=== PATIENT | female | born 1940 | race Caucasian/White ===

== ENCOUNTER → 2016-07-04 | Outpatient (CLI) | payer MEDICARE, OTHER | LOC: MW.CHENT 08:00 | PROVIDERS: ATTEND Otolaryngology | DX: H81.10 Benign paroxysmal vertigo, unspecified ear (principal); H90.5 Unspecified sensorineural hearing loss; H93.19 Tinnitus, unspecified ear | CPT/HCPCS: 99204 ==

== ENCOUNTER → 2016-07-09 | Outpatient (CLI) | payer MEDICARE, OTHER | LOC: MW.CHORTHO 08:00 | PROVIDERS: ATTEND Orthopaedic Surgery | DX: M17.11 Unilateral primary osteoarthritis, right knee (principal) | CPT/HCPCS: G0463 ==

== ENCOUNTER → 2016-08-01 | Outpatient (CLI) | payer MEDICARE, OTHER | LOC: MW.CHENT 08:00 | PROVIDERS: ATTEND Otolaryngology | DX: H81.10 Benign paroxysmal vertigo, unspecified ear (principal); H90.5 Unspecified sensorineural hearing loss | CPT/HCPCS: G0463 ==

== ENCOUNTER → 2016-08-28 | Outpatient (CLI) | payer MEDICARE, OTHER ==
[2016-08-28 14:06] LABS: CHLORIDE,CL 107 mmol/L (98-110); SODIUM,NA 141 mmol/L (136-146)
== END ==
LOC: MW.CHFP 09:58
PROVIDERS: ATTEND Nurse Practitioner Family
DX: E78.00 Pure hypercholesterolemia, unspecified (principal); K57.90 Diverticulosis of intestine, part unspecified, without perforation or abscess without bleeding; Z86.73 Personal history of transient ischemic attack (TIA), and cerebral infarction without residual deficits
CPT/HCPCS: 36415; 80053; 80061; 85025; G0463

== ENCOUNTER 2016-09-28 22:46 | Emergency (ER) | payer MEDICARE, OTHER ==
--- NOTE | 2016-09-28 22:55 | EDM.PDOC ---
ED HPI GENERAL MEDICAL PROBLEM - General Chief Complaint: Lower Extremity Injury/Pain Stated Complaint: FELL OF STEP STOOL Time Seen by Provider: 09/28/16 22:55 Source of Information: Reports: Patient - History of Present Illness INITIAL COMMENTS - FREE TEXT/NARRATIVE: HISTORY AND PHYSICAL: History of present illness: [] Patient presents with right lower extremity pain after a fall yesterday, she was on a step stool up one step and fell to the floor she has been ambulatory since but 6/ pain with ambulation, most of the pain involves the hip but she does have knee and ankle pain as well Has not taken ibuprofen and tramadol throughout the day Head injury or loss of consciousness no fever nausea vomiting chills sweats no chest pain shortness breath headache dizziness or palpitation no bowel or urine symptoms Review of systems: As per history of present illness and below otherwise all systems reviewed and negative. Past medical history: As per history of present illness and as reviewed below otherwise noncontributory. Surgical history: As per history of present illness and as reviewed below otherwise noncontributory. Social history: No reported history of drug or alcohol abuse. Family history: As per history of present illness and as reviewed below otherwise noncontributory. Physical exam: HEENT: Atraumatic, normocephalic, pupils reactive, negative for conjunctival pallor or scleral icterus, mucous membranes moist, throat clear, neck supple, nontender, trachea midline. Lungs: Clear to auscultation, breath sounds equal bilaterally, chest nontender. Heart: S1S2, regular, negative for clicks, rubs, or JVD. Abdomen: Soft, nondistended, nontender. Negative for masses or hepatosplenomegaly. Negative for costovertebral tenderness. Pelvis: Stable nontender. Genitourinary: Deferred. Rectal: Deferred. Extremities: Atraumatic, negative for cords or calf pain. Neurovascular unremarkable. Lower extremity no open lesion no obvious bruising full range of motion of the joints passively no redness warmth open lesion or exudate and higher limb is neurovascularly intact hip is tender with palpation over the greater trochanter no shortening or internal rotation Neuro: Awake, alert, oriented. Cranial nerves II through XII unremarkable. Cerebellum unremarkable. Motor and sensory unremarkable throughout. Exam nonfocal. Diagnostics: [] Pelvis and right hip Right knee 3 views Right ankle [address] no contrast Therapeutics: [] Impression: [] Contusion Right lower extremity pain/contusion/muscle spasm Definitive disposition and diagnosis as appropriate pending reevaluation and review of above. right lower leg Pain Score (Numeric/FACES): 7 - Related Data Allergies Allergy/AdvReac Type Severity Reaction Status Date / Time ciprofloxacin [From Cipro] Allergy Other Verified 09/28/16 22:57 metronidazole Allergy Swelling Verified 09/28/16 23:30 Home Meds: Home Meds Aspirin 1 tab PO DAILY 09/28/16 [History] Lisinopril [Lisinopril] 10 mg PO DAILY 09/28/16 [History] Lovastatin [Mevacor] 20 mg PO DAILY 09/28/16 [History] Review of Systems - Review of Systems Review Of Systems: ROS reveals no pertinent complaints other than HPI. ED EXAM, GENERAL - Physical Exam Exam: See Below Course - Vital Signs Last Recorded V/S: Last Vital Signs Temp 36 C 09/28/16 22:57 Pulse 69 09/29/16 00:16 Resp 18 09/29/16 00:16 BP 195/83 H 09/29/16 00:16 Pulse Ox 97 09/29/16 00:16 - Orders/Labs/Meds Orders: Active Orders 24 hr Category Date Time Status Ankle Min 3V Rt [CR] Stat Exams 09/28/16 23:05 Taken Hip Min 2V or 3V w Pelvis Rt [CR] Stat Exams 09/28/16 23:05 Taken Hip wo Cont Rt [CT] Stat Exams 09/28/16 23:53 Taken Knee 3V Rt [CR] Stat Exams 09/28/16 23:05 Taken Departure - Departure Time of Disposition: 01:29 Disposition: Home, Self-Care 01 Condition: good Clinical Impression: Contusion, Muscle spasm - Discharge Information Forms: ED Department Discharge Additional Instructions: continue medication as prescribed tylenol 650mg po three times daily return if symptoms persist or worsen f/u primary care 2 weeks sooner as needed - My Orders Last 24 Hours: My Active Orders 09/28/16 23:05 Ankle Min 3V Rt [CR] Stat Hip Min 2V or 3V w Pelvis Rt [CR] Stat Knee 3V Rt [CR] Stat 09/28/16 23:53 Hip wo Cont Rt [CT] Stat - Assessment/Plan Last 24 Hours: My Active Orders 09/28/16 23:05 Ankle Min 3V Rt [CR] Stat Hip Min 2V or 3V w Pelvis Rt [CR] Stat Knee 3V Rt [CR] Stat 09/28/16 23:53 Hip wo Cont Rt [CT] Stat
[2016-09-29 01:36] VITALS: BP 174/83
--- NOTE | 2016-09-30 14:49 | CR ---
EXAM DATE: 09/28/16 PATIENT'S AGE: 76 Patient: CLEMENTE DENTON Facility: [place], [place] Site . Site : 1940 Study: XRay Pelvis Right [id number] hip/pel-09/28/2016 11:25:50 PM Ordering Physician: Nawaf Myers Final Report: Indication: Fall Technique: A frontal view of the pelvis and two views of the right hip Comparison: 06/20/2016 Findings: Bones: Small focus of apparent cortical irregularity in the superior aspect of the right greater trochanter on one view could be projectional. Otherwise no acute displaced fracture or dislocation. Joint spaces: Unremarkable. Soft tissues: Unremarkable. Impression: A small focus of mild cortical irregularity in the greater trochanter superiorly could be projectional. Otherwise no acute displaced fracture. Correlate for focal tenderness. Dictated by Tima Lopez MD @ 09/28/2016 11:45:02 PM Dictated by: Tima Lopez MD @ 09/28/2016 23:45:09 (Electronic Signature) Report Signed by Proxy. [facility]
--- NOTE | 2016-09-30 14:50 | CR ---
EXAM DATE: 09/28/16 PATIENT'S AGE: 76 Patient: CLEMENTE DENTON Facility: [place], [place] Site . Site : 1940 Study: XRay Extremity Right [id number] ankle-09/28/2016 11:26:11 PM Ordering Physician: Nawaf Myers Final Report: INDICATION: Pain post fall yesterday TECHNIQUE: Right ankle 3 views. COMPARISON: None. FINDINGS: Bones: Alignment is normal. No fractures or bone lesions. Joint spaces: Unremarkable. Soft tissues: Unremarkable. IMPRESSION: Unremarkable right ankle. Dictated by: Dayo Hernandez MD @ 09/28/2016 23:50:59 (Electronic Signature) Report Signed by Proxy. [facility]
--- NOTE | 2016-09-30 14:51 | CR ---
EXAM DATE: 09/28/16 PATIENT'S AGE: 76 Patient: CLEMENTE DENTON Facility: [place], [place] Site . Site : 1940 Study: XRay Knee Right [id number]/3/2017 11:26:36 PM Ordering Physician: Nawaf Myers Final Report: INDICATION: Pain following fall TECHNIQUE: Three views right knee. COMPARISON: 06/20/2016 FINDINGS: Bones: Alignment is normal. No fractures or bone lesions. Joint spaces: Degenerative changes patellofemoral joint. Marginal osteophyte medial femoral condyle. Soft tissues: Unremarkable. IMPRESSION: No evidence of acute trauma. Dictated by Dayo Hernandez MD @ 09/28/2016 11:50:09 PM Dictated by: Dayo Hernandez MD @ 09/28/2016 23:50:15 (Electronic Signature) Report Signed by Proxy. ANTONIA
--- NOTE | 2016-09-30 14:52 | CT ---
EXAM DATE: 09/28/16 PATIENT'S AGE: 76 Patient: CLEMENTE DENTON Facility: [place], [place] Site . Site : 1940 Study: CT Hip Right [id number]/4/2017 12:25:56 AM Ordering Physician: Nawaf Myers Final Report: Indication: Neck pain. Possible kyung irregularity superior aspect of the right greater trochanter on prior plain films. Technique: CT scan right hip without intravenous contrast. Comparison: AP pelvis and two views right hip 09/28/2016 Findings: There are no fractures. The right hip joint is anatomically aligned. The soft tissues are unremarkable. Impression: Atraumatic appearance of the right hip. Specifically no evidence of fracture involving the right greater trochanter. Dictated by Dayo Hernandez MD @ 09/29/2016 1:19:00 AM Dictated by: Dayo Hernandez MD @ 09/29/2016 01:19:13 (Electronic Signature) Report Signed by Proxy. ANTONIA
== END 2016-09-29 01:36 | disposition home or self-care (01) ==
LOC: MW.ED 22:46
DX: S80.11XA Contusion of right lower leg, initial encounter (principal); M62.838 Other muscle spasm; Z79.82 Long term (current) use of aspirin; Z79.899 Other long term (current) drug therapy; Z88.1 Allergy status to other antibiotic agents; W17.89XA Other fall from one level to another, initial encounter
CPT/HCPCS: 73502-26-RT; 73502-RT; 73562-26-RT; 73562-RT; 73610-26-RT; 73610-RT; 73700-26-RT; 73700-RT; 99282; 99284-25